=== PATIENT | female | born 1930 | race Caucasian/White ===

== ENCOUNTER 2016-08-10 11:43 | Inpatient (IN) | payer MEDICARE ==
[~2016-08-10] VITALS: Ht 149.9 cm; Wt 89.8 kg
[2016-08-10] MEDS ORDERED: HYDROXYZINE HCL25 MG PO (13:51)
[2016-08-10] MEDS ORDERED: ALPRAZOLAM0.5 MG PO (13:52)
[2016-08-10] MEDS ORDERED: NEURONTIN 300300 MG PO (13:53)
[2016-08-10] MEDS ORDERED: INCRUSE ELLI62.5 MCG INH (13:54)
[2016-08-10] MEDS ORDERED: CARDIZEM60 MG PO (13:55)
[2016-08-10] MEDS ORDERED: LASIX TAB 20 MG20 MG PO (13:56)
[2016-08-10] MEDS ORDERED: MELOXICAM15 MG PO (14:00)
[2016-08-10] MEDS ORDERED: GLUCOTROL5 MG PO (14:00)
[2016-08-10] MEDS ORDERED: METOPROLOL TART25 MG PO (14:01)
[2016-08-10] MEDS ORDERED: GLUCOPHAGE 500500 MG PO (14:01)
[2016-08-10] MEDS ORDERED: POTASSIUM CHLO10 ME1 PO (14:03)
[2016-08-10] MEDS ORDERED: RANITIDINE HCL150 M1 PO (14:03)
[2016-08-10] MEDS ORDERED: SYMBICORT 16010.2 GM INH (14:04)
[2016-08-10] MEDS ORDERED: VENTOLIN HFA 66.7 GM INH (14:05)
[2016-08-10] MEDS ORDERED: LISINOPRIL2.5 MG PO (14:06)
[2016-08-10] MEDS ORDERED: ANTIVERT 12.512.5 MG PO (14:06)
[2016-08-10] MEDS ORDERED: NAPROXEN375 MG PO (14:07)
[2016-08-10] MEDS ORDERED: VOLTAREN 0.1%2.5 ML TOP (14:08)
[2016-08-10] MEDS ORDERED: XARELTO20 MG PO (14:09)
[2016-08-10 14:53] LABS: HEMOGLOBIN 7.8 gm/dl (12.3-15.3); RED BLOOD COUNT 3.32 M/UL (4.00-5.10); WHITE BLOOD COUNT 5.2 K/UL (4.5-11.0)
[2016-08-10] MEDS ORDERED: PERCOCET 7.5-31 EACH PO (20:35)
[2016-08-11 13:20] LABS: HEMOGLOBIN 7.3 gm/dl (12.3-15.3); RED BLOOD COUNT 3.13 M/UL (4.00-5.10)
[2016-08-12 03:35] LABS: HEMOGLOBIN 7.4 gm/dl (12.3-15.3); RED BLOOD COUNT 3.18 M/UL (4.00-5.10); WHITE BLOOD COUNT 7.4 K/UL (4.5-11.0)
[2016-08-13 04:10] LABS: HEMOGLOBIN 7.4 gm/dl (12.3-15.3); RED BLOOD COUNT 3.17 M/UL (4.00-5.10)
[2016-08-15 06:39] LABS: HEMOGLOBIN 7.4 gm/dl (12.3-15.3); RED BLOOD COUNT 3.1 M/UL (4.00-5.10)
[2016-08-15 06:43] LABS: WHITE BLOOD COUNT 6.5 K/UL (4.5-11.0)
[2016-08-16 05:35] LABS: HEMOGLOBIN 7.2 gm/dl (12.3-15.3); RED BLOOD COUNT 3.03 M/UL (4.00-5.10); WHITE BLOOD COUNT 6.9 K/UL (4.5-11.0)
[2016-08-17 14:56] LABS: HEMOGLOBIN 9.1 gm/dl (12.3-15.3)
[2016-08-17] MEDS ORDERED: FERROUS SULFAT325 MG PO (16:05)
[2016-08-17] MEDS ORDERED: MEDROL DOSEPAK 24 MG PO (16:07)
[2016-09-22] MEDS ORDERED: PLAVIX 75 MG TA75 MG PO (17:07)
[2016-09-22] MEDS ORDERED: ASPIR 8181 MG PO (17:07)
[2016-09-22] MEDS ORDERED: LANOXIN TAB0.125 MG PO (17:07)
[2016-09-28] MEDS ORDERED: MOBIC15 MG PO (13:46)
== END 2016-08-17 17:32 | disposition home health service (06) | DRG 291 ==
LOC: CCU 14:15 → MED SURG 4 14:15
PROVIDERS: Family Medicine; ADMIT Hospitalist
PROC: 5A09457 Assistance with Respiratory Ventilation, 24-96 Consecutive Hours, Continuous Positive Airway Pressure (ICD-10-PCS; principal; 2016-08-10)
PROC: 30233N1 Transfusion of Nonautologous Red Blood Cells into Peripheral Vein, Percutaneous Approach (ICD-10-PCS; 2016-08-16)
DX: I13.0 Hypertensive heart and chronic kidney disease with heart failure and stage 1 through stage 4 chronic kidney disease, or unspecified chronic kidney disease (principal); J96.22 Acute and chronic respiratory failure with hypercapnia; I50.33 Acute on chronic diastolic (congestive) heart failure; J96.21 Acute and chronic respiratory failure with hypoxia; N17.9 Acute kidney failure, unspecified; E87.2 Acidosis; Q61.9 Cystic kidney disease, unspecified; R57.9 Shock, unspecified; J44.1 Chronic obstructive pulmonary disease with (acute) exacerbation; F05 Delirium due to known physiological condition; E66.2 Morbid (severe) obesity with alveolar hypoventilation; Z68.41 Body mass index [BMI] 40.0-44.9, adult; I48.91 Unspecified atrial fibrillation; D50.9 Iron deficiency anemia, unspecified; D63.1 Anemia in chronic kidney disease; F41.9 Anxiety disorder, unspecified; E11.65 Type 2 diabetes mellitus with hyperglycemia; E11.22 Type 2 diabetes mellitus with diabetic chronic kidney disease; N18.3 Chronic kidney disease, stage 3 (moderate); K21.9 Gastro-esophageal reflux disease without esophagitis; M19.90 Unspecified osteoarthritis, unspecified site; F32.9 Major depressive disorder, single episode, unspecified; I27.2 Other secondary pulmonary hypertension; R53.1 Weakness; R21 Rash and other nonspecific skin eruption; Z88.6 Allergy status to analgesic agent; Z88.8 Allergy status to other drugs, medicaments and biological substances; Z79.84 Long term (current) use of oral hypoglycemic drugs; Z87.891 Personal history of nicotine dependence; Z79.01 Long term (current) use of anticoagulants; Z79.899 Other long term (current) drug therapy; Z79.891 Long term (current) use of opiate analgesic; Z79.4 Long term (current) use of insulin; Z79.51 Long term (current) use of inhaled steroids; Z84.1 Family history of disorders of kidney and ureter; Z82.49 Family history of ischemic heart disease and other diseases of the circulatory system; Z80.9 Family history of malignant neoplasm, unspecified; Z83.3 Family history of diabetes mellitus
CPT/HCPCS: ECHO; 36415; 36600; 71010; 80048; 80307; 81001; 82009; 82043; 82550; 82553; 82570; 82728; 82803; 82962; 83036; 83540; 83550; 83605; 83880; 84484; 85014; 85018; 85025; 85027; 86850; 86900; 86901; 86920; 87086; 93005; 93306; 94640; 94660; 94664; 97116; 97530; C9113; J1756; J1940; J2543; J2920; J2930; J7040; J7050; P9016; Q0177